=== PATIENT | male | born 1950 | race Caucasian/White ===

== ENCOUNTER 2017-06-26 17:50 | Emergency (ER) | payer BC ==
[2017-06-26 18:07] VITALS: BP 171/89
[2017-06-26] MEDS ORDERED: Ketorolac 30 MG/ML SDV IVPUSH ONE (19:06)
[2017-06-26] MEDS ORDERED: HYDROmorphone 1 MG/ML Syringe IVPUSH ONE (19:06)
[2017-06-26] MEDS ORDERED: Ondansetron 4 MG/2 ML SDV IVPUSH ONE (19:06)
[2017-06-26] MEDS ORDERED: Sodium Chloride 0.9% 10 ML Syringe FLUSH PRN (19:06)
--- NOTE | 2017-06-26 19:09 | EDM.PDOC ---
ED HPI GENERAL MEDICAL PROBLEM - General Chief Complaint: Flank Pain Stated Complaint: BACK PAIN Time Seen by Provider: 06/26/17 18:58 Source of Information: Reports: Patient History Limitations: Reports: No Limitations - History of Present Illness INITIAL COMMENTS - FREE TEXT/NARRATIVE: Patient is a 66-year-old male who presents to the ED complaining of left sided flank pain. States it started this morning with no provoking activities. Over the course of the day pain has worsened. Upon 1600 hrs it has grown quite severe and rated 8 out of 10. Described as a sharp pain increased with moving. He is unable to get comfortable. There is no pain with urination. He's had no previous symptoms as such. He has no history of kidney stones. No history of back issues or recent rash development. Denies any pain to his legs, incontinence, or numbness or tingling. He is unsure what is causing this pain. Unclear if this muscle related or not. Right Flank Pain Score (Numeric/FACES): 9 - Related Data Allergies Allergy/AdvReac Type Severity Reaction Status Date / Time No Known Allergies Allergy Verified 06/26/17 18:07 Home Meds: Home Meds Acetaminophen/HYDROcodone [Lacon 325-5 MG] 1 tab PO Q6H PRN #12 tablet 06/26/17 [Rx] Cyclobenzaprine [Flexeril] 10 mg PO TID PRN #10 tablet 06/26/17 [Rx] Enalapril [Vasotec] 10 mg PO DAILY 06/26/17 [History] Pure Turmeric Curcumin. 1 tab PO DAILY 06/26/17 [History] amLODIPine [Norvasc] 5 mg PO DAILY 06/26/17 [History] atorvaSTATin [Lipitor] 10 mg PO DAILY 06/26/17 [History] metFORMIN HCl [Metformin HCl ER] 750 mg PO DAILY 06/26/17 [History] Past Medical History Cardiovascular History: Reports: High Cholesterol, Hypertension Endocrine/Metabolic History: Reports: Diabetes, Type II - Past Surgical History Neurological Surgical History: Reports: C-Spine, Lumbar Spine Musculoskeletal Surgical History: Reports: Arthroscopic Knee Social & Family History - Tobacco Use Smoking Status *Q: Former Smoker Used Tobacco, but Quit: Yes Month Tobacco Last Used: 2001 - Caffeine Use Caffeine Use: Reports: None - Recreational Drug Use Recreational Drug Use: No ED ROS GENERAL - Review of Systems Review Of Systems: See Below Constitutional: Denies: Fever, Chills, Malaise, Weakness, Decreased Appetite Respiratory: Reports: No Symptoms Cardiovascular: Reports: No Symptoms GI/Abdominal: Denies: Abdominal Pain, Constipation, Diarrhea, Nausea, Vomiting : Reports: Flank Pain (Left-sided). Denies: Dysuria, Frequency, Hematuria, Urgency Musculoskeletal: Reports: Back Pain (Left lower back) Skin: Reports: No Symptoms Neurological: Reports: No Symptoms Psychiatric: Reports: No Symptoms ED EXAM,LOWER BACK PAIN/INJURY - Physical Exam Exam: See Below Exam Limited By: No Limitations General Appearance: Alert, WD/WN, No Apparent Distress, Mild Distress Ears: Hearing Grossly Normal Nose: Normal Inspection Throat/Mouth: Normal Voice, No Airway Compromise Neck: Normal Inspection, Supple, Full Range of Motion Respiratory/Chest: No Respiratory Distress, Lungs Clear, Normal Breath Sounds, No Accessory Muscle Use, Chest Non-Tender Cardiovascular: Normal Peripheral Pulses, Regular Rate, Rhythm, No Murmur GI/Abdominal: Normal Bowel Sounds, Soft, Non-Tender, No Organomegaly, No Distention, Other (No flank pain on palpation. Discomfort is nonreproducible with palpation) Back Exam: Normal Inspection, Decreased Range of Motion (Secondary to pain to the left lower back), Other (No tenderness noted on palpation. No rash present. Incision to spine from previous surgery. No verterbral pain noted. ). No: Muscle Spasm, Paraspinal Tenderness, Vertebral Tenderness Extremities: Normal Inspection, Normal Range of Motion, Non-Tender, No Pedal Edema, Normal Capillary Refill Neurological: Alert, Normal Mood/Affect, Normal Dorsiflexion, CN II-XII Intact, Normal Plantar Flexion, No Motor/Sensory Deficits, Oriented x 3 Psychiatric: Normal Affect, Normal Mood Skin Exam: Warm, Dry, Intact, Normal Color, No Rash Course - Vital Signs Last Recorded V/S: Last Vital Signs Temp 98.2 F 06/26/17 18:04 Pulse 78 06/26/17 22:02 Resp 16 06/26/17 22:02 BP 171/89 H 06/26/17 18:04 Pulse Ox 98 06/26/17 22:02 - Orders/Labs/Meds Labs: Laboratory Tests 06/26/17 06/26/17 06/26/17 Range/Units 18:13 19:35 19:35 WBC 6.17 (4.23-9.07) K/mm3 RBC 4.44 L (4.63-6.08) M/mm3 Hgb 14.0 (13.7-17.5) gm/L Hct 41.0 (40.1-51.0) % MCV 92.3 H (79.0-92.2) fl MCH 31.5 (25.7-32.2) pg MCHC 34.1 (32.2-35.5) g/dl RDW Std Deviation 41.7 (35.1-43.9) fL Plt Count 233 (163-337) K/mm3 MPV 9.7 (9.4-12.3) fl Neut % (Auto) 69.2 H (34.0-67.9) % Lymph % (Auto) 20.9 L (21.8-53.1) % [place] % (Auto) 8.8 (5.3-12.2) % Eos % (Auto) 0.6 L (0.8-7.0) Baso % (Auto) 0.3 (0.1-1.2) % Neut # (Auto) 4.27 (1.78-5.38) K/mm3 Lymph # (Auto) 1.29 L (1.32-3.57) K/mm3 [place] # (Auto) 0.54 (0.30-0.82) K/mm3 Eos # (Auto) 0.04 (0.04-0.54) K/mm3 Baso # (Auto) 0.02 (0.01-0.08) K/mm3 Sodium 141 (136-145) mEq/L Potassium 3.9 (3.5-5.1) mEq/L Chloride 104 (98-107) mEq/L Carbon Dioxide 26 (21-32) mEq/L Anion Gap 14.9 (5-15) BUN 13 (7-18) mg/dL Creatinine 1.1 (0.7-1.3) mg/dL Est Cr Clr Drug Dosing 67.84 mL/min Estimated GFR (MDRD) > 60 (>60) mL/min BUN/Creatinine Ratio 11.8 L (14-18) Glucose 134 H (80-115) mg/dL Calcium 8.8 (8.5-10.1) mg/dL Total Bilirubin 0.3 (0.2-1.0) mg/dL AST 31 (15-37) U/L ALT 46 (16-63) U/L Alkaline Phosphatase 57 (46-116) U/L C-Reactive Protein < 0.2 (<1.0) mg/dL Total Protein 7.1 (6.4-8.2) g/dl Albumin 4.3 (3.4-5.0) g/dl Globulin 2.8 gm/dL Albumin/Globulin Ratio 1.5 (1-2) Urine Color Yellow (Yellow) Urine Appearance Clear (Clear) Urine pH 7.0 (5.0-8.0) Ur Specific [place] 1.025 (1.005-1.030) Urine Protein Negative (Negative) Urine Glucose (UA) Negative (Negative) Urine Ketones Negative (Negative) Urine Occult Blood Negative (Negative) Urine Nitrite Negative (Negative) Urine Bilirubin Negative (Negative) Urine Urobilinogen 0.2 (0.2-1.0) Ur Leukocyte Esterase Negative (Negative) Urine RBC Not seen (0-5) /hpf Urine WBC 0-5 (0-5) /hpf Ur Epithelial Cells 0-5 (0-5) /hpf Amorphous Sediment Few H (NOT SEEN) /hpf Urine Bacteria Rare (FEW) /hpf Urine Mucus Not seen (FEW) /hpf Meds: Medications Discontinued Medications Generic Name Dose Route Start Last Admin Trade Name Freq PRN Reason Stop Dose Admin Hydromorphone HCl 1 mg 06/26/17 19:06 06/26/17 19:40 Dilaudid IVPUSH 06/26/17 19:07 1 mg ONETIME ONE Administration Sodium Chloride 1,000 mls @ 250 mls/hr 06/26/17 19:15 06/26/17 19:38 Normal Saline IV 250 mls/hr ASDIRECTED ZACK Administration Ketorolac Tromethamine 30 mg 06/26/17 19:06 06/26/17 19:39 Toradol IVPUSH 06/26/17 19:07 30 mg ONETIME ONE Administration Ondansetron HCl 4 mg 06/26/17 19:06 06/26/17 19:38 Zofran IVPUSH 06/26/17 19:07 4 mg ONETIME ONE Administration Sodium Chloride 10 ml 06/26/17 19:06 06/26/17 19:41 Saline Flush FLUSH 10 ml ASDIRECTED PRN Administration Keep Vein Open - Re-Assessments/Exams Free Text/Narrative Re-Assessment/Exam: Examination did not elicit obvious abnormalities. Ordered peripheral IV with normal saline 250 mls per hour, Dilaudid 1 mg IVP, Toradol 30 mg IVP, and Zofran 4 mg IVP. Initial labs and studies include CBC, chem 14, CRP, and UA. Believe patient may have a kidney stone due to the location of pain and also inability get comfortable. Pain was not reproducible with palpation. 06/26/17 21:00 Labs reviewed: White blood cell count 6.17, hemoglobin is 14.0, neutrophils percentage is 69.2, with no left shift, sodium 141, potassium 3.9, creatinine 1.1, glucose 134, CRP less than 0.2, UA did not reveal any concerning findings. CT the abdomen and pelvis impression: No renal calculi, ureteral dilatation or ureteral stone is seen. Other incidental findings as described above. No acute abnormality is identified on noncontrast CT study of the abdomen and pelvis. 06/26/17 21:15 Reassessment, patient laying in bed with his eyes closed. Upon asking about how the pain is doing he says terrible. States pain is a 7 out of 10 and has not improved with Dilaudid. Vital signs are stable. I told him I will not give any additional pain medications since he does not appear to be in any acute distress. I discussed results of CT and labs with the patient. Unclear etiology current complaint. Pain is not reproducible with palpation. There is no rash indicating shingles. He has no pain to the vertebral column. Will get nursing staff to get the patient up and walking to see how he does. Patient did state the pain he is currently experiencing is unlike previous back pain. 06/26/17 21:25 Nursing staff got the patient up and walking. He had pain localized to the right lower back. 06/26/17 21:37 On reevaluation again patient having localized pain to his left lower back with no worsening with palpation. Pain was worsened with lifting his legs up. Believe this is more muscle related. Thus will discharge patient with pain medications and muscle relaxer. Discharge instructions as documented. Departure - Departure Time of Disposition: 21:38 Disposition: Home, Self-Care 01 Condition: Good Clinical Impression: Low back pain Qualifiers: Chronicity: acute Back pain laterality: right Sciatica presence: without sciatica Qualified Code(s): M54.5 - Low back pain - Discharge Information Prescriptions: Acetaminophen/HYDROcodone [Lacon 325-5 MG] 1 tab PO Q6H PRN #12 tablet PRN Reason: Pain (Severe 7-10) Cyclobenzaprine [Flexeril] 10 mg PO TID PRN #10 tablet PRN Reason: Muscle Spasm Instructions: Pain Medicine Instructions, [id number], Flank Pain, Easy-to- Read Referrals: Balbina Astudillo [employer]PER[employer] SPECIALIST [Primary Care Provider] - Forms: ED Department Discharge Additional Instructions: As discussed CT of the abdomen and pelvis did not reveal any acute abnormalities. Labs were essentially normal. On examination he had no reproducible pain on palpation. Pain was only worsened with lifting of the leg. Thus pain is most likely related to a muscle strain. Take the muscle relaxer as prescribed. Take ibuprofen 600 mg every 6 hours and Tylenol 650 mg every 6 hours in alternating fashion for pain. For pain not managed with the above therapies take Lacon one tab every 6 hours as needed. Do not take Lacon and Tylenol at the same time. Do not drive this evening nor while taking the Lacon. Refrain from any activities that cause worsening pain. See her primary care provider as needed for further pain management and reevaluation. Return to the ED for any new or worsening symptoms. Thank you for your patience.
[2017-06-26] MEDS ORDERED: Sodium Chloride 0.9% 1,000 ML IV SCH (19:15)
--- NOTE | 2017-06-26 20:30 | CT ---
CT abdomen and pelvis Technique: Multiple axial sections were obtained from above the dome of the diaphragm inferiorly through the pubic symphysis. Intravenous and oral contrast not utilized. Study has been performed as a ureteral stone protocol. Comparison: No previous abdominal imaging. Findings: Visualized lung bases shows nothing acute. Kidneys show no abnormal calcifications. Ureters show no dilatation. No abnormal calcifications are seen along the course of the ureters. No bladder calculi are seen. Liver has an unremarkable noncontrast CT appearance. Spleen appears within normal limits. Adrenal glands show no nodule. No discrete abnormality is appreciated within the pancreas. Gallbladder shows no calcified gallstones. Aorta shows atherosclerotic calcification which continues into the iliac vessels. Appendix is seen which is normal. No pelvic mass or adenopathy is seen. No significant diverticulosis is seen. No inflammatory change or free fluid is seen. Minimal increased stool is noted within the colon. Prostate gland is slightly enlarged. Bone window settings were reviewed which shows scattered degenerative endplate spurring within the spine with degenerative apophyseal change seen within the mid and lower lumbar spine. Degenerative apophyseal change also seen within the visualized lower thoracic spine. Impression: 1. No renal calculi, ureteral dilatation or ureteral stone is seen. 2. Other incidental findings as described above. 3. No acute abnormality is identified on noncontrast CT study of the abdomen and pelvis. Diagnostic code #2
== END 2017-06-26 21:50 | disposition home or self-care (01) ==
LOC: JD.ED 17:50
DX: M54.5 Low back pain (principal); I10 Essential (primary) hypertension; E78.00 Pure hypercholesterolemia, unspecified; E11.9 Type 2 diabetes mellitus without complications; Z79.84 Long term (current) use of oral hypoglycemic drugs; Z79.899 Other long term (current) drug therapy; Z87.891 Personal history of nicotine dependence
CPT/HCPCS: 36415; 74176; 80053; 81001; 85025; 86140; 96361; 96374; 96375; 99284; J1170; J1885; J2405; J7040; J7050

== ENCOUNTER 2023-04-02 07:29 | Day surgery (SDC) | payer MEDICARE, BC ==
[~2023-04-02 07:29] MED LIST: Lactated Ringers 1,000 ML IV SCH; Lidocaine 1%/Sod Bicarbonate in NS 8.4% 1 ML Syringe IDERM PRN; Sodium Chloride 0.9% 10 ML Syringe FLUSH PRN; Sodium Chloride 0.9% 10 ML Syringe FLUSH SCH
[2023-04-02] MEDS ORDERED: Midazolam 1 MG/ML 2 ML SDV ONE (08:14)
[2023-04-02] MEDS ORDERED: Propofol 200 MG/20 ML SDV ONE (08:14)
[2023-04-02 09:08] VITALS: BP 118/74; PULSE 70
== END 2023-04-02 09:50 | disposition home or self-care (01) ==
LOC: JD.SDS 07:29
PROVIDERS: ATTEND Surgery
DX: K29.70 Gastritis, unspecified, without bleeding (principal); K44.9 Diaphragmatic hernia without obstruction or gangrene; K25.9 Gastric ulcer, unspecified as acute or chronic, without hemorrhage or perforation; I78.1 Nevus, non-neoplastic; K31.89 Other diseases of stomach and duodenum; I10 Essential (primary) hypertension; E78.00 Pure hypercholesterolemia, unspecified; N40.0 Benign prostatic hyperplasia without lower urinary tract symptoms; E11.42 Type 2 diabetes mellitus with diabetic polyneuropathy; M54.2 Cervicalgia; G89.29 Other chronic pain; M54.16 Radiculopathy, lumbar region; K21.9 Gastro-esophageal reflux disease without esophagitis; Z79.899 Other long term (current) drug therapy; Z79.84 Long term (current) use of oral hypoglycemic drugs; Z98.890 Other specified postprocedural states; Z87.891 Personal history of nicotine dependence
CPT/HCPCS: 43239; J2250; J2704; J7120

== ENCOUNTER 2023-08-08 08:28 | Day surgery (SDC) | payer MEDICARE, BC ==
[~2023-08-08 08:28] MED LIST changes: -Lidocaine 1%/Sod Bicarbonate in NS 8.4% 1 ML Syringe IDERM PRN
[2023-08-08] MEDS ORDERED: Bupivacaine 0.5%/EPINEPHrine 1:200,000 50 ML MDV ONE (09:18)
[2023-08-08] MEDS ORDERED: Lidocaine 1% 30 ML SDV ONE (09:18)
[2023-08-08] MEDS ORDERED: fentaNYL 100 MCG/2 ML SDV ONE (09:42)
[2023-08-08] MEDS ORDERED: Propofol 200 MG/20 ML SDV ONE (09:42)
[2023-08-08] MEDS ORDERED: Midazolam 1 MG/ML 2 ML SDV ONE (09:43)
[2023-08-08] MEDS ORDERED: Lidocaine 1% 5 ML VIAL ONE (09:43)
[2023-08-08] MEDS ORDERED: ceFAZolin 2 GM Vial ONE (09:58)
[2023-08-08] MEDS ORDERED: Ketorolac 15 MG/ML SDV ONE (10:40)
[2023-08-08 17:11] VITALS: BP 126/61; PULSE 78
== END 2023-08-08 10:52 | disposition home or self-care (01) ==
LOC: JD.SDS 08:28
PROVIDERS: ATTEND Surgery
DX: L72.0 Epidermal cyst (principal); L72.12 Trichodermal cyst; N40.0 Benign prostatic hyperplasia without lower urinary tract symptoms; K21.9 Gastro-esophageal reflux disease without esophagitis; E78.00 Pure hypercholesterolemia, unspecified; I10 Essential (primary) hypertension; E11.42 Type 2 diabetes mellitus with diabetic polyneuropathy; Z79.84 Long term (current) use of oral hypoglycemic drugs; Z79.899 Other long term (current) drug therapy; Z87.891 Personal history of nicotine dependence
CPT/HCPCS: 11422; J0690; J1885; J2250; J2704; J3010; J7120; 00300; 88304; J3490

== ENCOUNTER 2023-10-15 08:26 | Day surgery (SDC) | payer MEDICARE, BC ==
[2023-10-15] MEDS ORDERED: fentaNYL 100 MCG/2 ML SDV ONE (09:48)
[2023-10-15] MEDS ORDERED: Propofol 200 MG/20 ML SDV ONE (09:48)
[2023-10-15] MEDS ORDERED: Lidocaine 1% PF 2 ML SDV ONE (10:00)
[2023-10-15 11:23] VITALS: BP 121/83; PULSE 72
== END 2023-10-15 11:15 | disposition home or self-care (01) ==
LOC: JD.SDS 08:26
PROVIDERS: ATTEND Specialist
DX: K27.9 Peptic ulcer, site unspecified, unspecified as acute or chronic, without hemorrhage or perforation (principal); I10 Essential (primary) hypertension; E11.42 Type 2 diabetes mellitus with diabetic polyneuropathy; K21.9 Gastro-esophageal reflux disease without esophagitis; E78.00 Pure hypercholesterolemia, unspecified; N40.0 Benign prostatic hyperplasia without lower urinary tract symptoms; Z87.891 Personal history of nicotine dependence; Z79.84 Long term (current) use of oral hypoglycemic drugs; Z79.899 Other long term (current) drug therapy
CPT/HCPCS: 43239; 82947; J2704; J3010; J7120; J3490

== ENCOUNTER 2024-12-29 11:47 | Emergency (ER) | payer MEDICARE, BC ==
[2024-12-29 12:04] VITALS: BP 127/62; PULSE 70
[2024-12-29] MEDS: Ketorolac 30 MG/ML SDV IM ONE (12:36)
[2024-12-29] MEDS: LORazepam 1 MG Tab PO ONE (12:37)
== END 2024-12-29 15:00 | disposition home or self-care (01) ==
LOC: JD.ED 11:47
DX: M54.2 Cervicalgia (principal); I10 Essential (primary) hypertension; K21.9 Gastro-esophageal reflux disease without esophagitis; E78.00 Pure hypercholesterolemia, unspecified; E11.9 Type 2 diabetes mellitus without complications; Z79.84 Long term (current) use of oral hypoglycemic drugs; Z79.899 Other long term (current) drug therapy
CPT/HCPCS: 72125; 96372; 99283; A9270; J1885; 99284

== ENCOUNTER 2025-02-20 22:11 | Emergency (ER) | payer MEDICARE, BC ==
[2025-02-20] MEDS ORDERED: Sodium Chloride 0.9% 10 ML Syringe FLUSH PRN (22:31)
[2025-02-20 22:36] LABS: BASOPHILS ABSOLUTE AUTO 0.1 K/mm3 (0.0-0.2); BASOPHILS PERCENT AUTO 0.9 % (0.0-1.0); EOSINOPHILS PERCENT AUTO 0.5 % (0.0-6.0); HEMOGLOBIN 13.2 gm/dl (14.0-18.0); IMMATURE GRAN ABSOLUTE AUTO 0.01 K/mm3 (0.00-0.05); IMMATURE GRAN PERCENT AUTO 0.2 % (0.0-0.4); LYMPHOCYTES ABSOLUTE AUTO 2.1 K/mm3 (1.0-4.8); LYMPHOCYTES PERCENT AUTO 37.3 % (24.0-44.0); MEAN CORPUSCULAR HEMOGLOBIN 31.5 pg (28.0-32.0); MEAN CORPUSCULAR VOLUME 95.5 fl (83.0-99.0); MEAN PLATELET VOLUME 9.6 fl (9.4-12.4); MONOCYTES ABSOLUTE AUTO 0.4 K/mm3 (0.0-0.8); NEUTROPHILS ABSOLUTE AUTO 2.9 K/mm3 (1.8-7.7); NEUTROPHILS PERCENT AUTO 53.1 % (41.0-71.0); PLATELET COUNT,PLT 241 K/mm3 (150-400); RED BLOOD CELL COUNT 4.19 M/mm3 (4.52-5.90); WHITE BLOOD CELL COUNT,WBC 5.49 K/mm3 (3.9-11.3)
[2025-02-20] MEDS: Sodium Chloride 0.9% 1,000 ML IV ONE (22:39)
[2025-02-20 22:56] LABS: A/G RATIO 1.3 (1-2); ALBUMIN 3.7 g/dl (3.4-5.0); ANION GAP 16.4 (5-15); BILIRUBIN TOTAL 0.5 mg/dL (0.2-1.0); BUN/CREATININE RATIO 12.5 (14-18); CALCIUM 8.9 mg/dL (8.5-10.1); CREATININE 1.2 mg/dL (0.7-1.3); EST CRCL DRUG DOSING (CG) 53.83 mL/min; MAGNESIUM 1.7 mg/dL (1.8-2.4); POTASSIUM,K 3.4 mEq/L (3.5-5.1); PROTEIN TOTAL,TP 6.6 g/dl (6.4-8.2)
[2025-02-21 00:55] LABS: APPEARANCE,URINE CLEAR (Clear); BILIRUBIN,URINE NEGATIVE (Negative); COLOR,URINE YELLOW (Yellow); GLUCOSE,URINE NEGATIVE (Negative); KETONES,URINE TRACE (Negative); LEUKOCYTE ESTERASE,URINE NEGATIVE (Negative); NITRITE,URINE NEGATIVE (Negative); OCCULT BLOOD,URINE TRACE-INTACT (Negative); PH,URINE 6.5 (5.0-8.0); PROTEIN,URINE TRACE (Negative); UROBILINOGEN,URINE 0.2 (0.2-1.0)
[2025-02-21] MEDS: Sodium Chloride 0.9% 1,000 ML IV ONE (01:00)
[2025-02-21 01:10] LABS: CALCIUM OXALATE CRYSTALS,URINE RARE; EPITHELIAL CELLS,URINE NOT SEEN /hpf (0-5); RBC,URINE 0-5 /hpf (0-5); WBC,URINE 0-5 /hpf (0-5)
[2025-02-21 01:11] LABS: BACTERIA,URINE FEW /hpf (FEW); FINE GRANULAR CASTS,URINE 0-5 /lpf (0-5); HYALINE CASTS,URINE 20-30 /lpf (0-5); MUCUS,URINE FEW /hpf (FEW)
[2025-02-21 02:04] VITALS: BP 135/76; PULSE 69
== END 2025-02-21 02:37 | disposition home or self-care (01) ==
LOC: JD.ED 22:11
DX: R55 Syncope and collapse (principal); S09.90XA Unspecified injury of head, initial encounter; R19.7 Diarrhea, unspecified; I10 Essential (primary) hypertension; E78.00 Pure hypercholesterolemia, unspecified; K21.9 Gastro-esophageal reflux disease without esophagitis; E11.9 Type 2 diabetes mellitus without complications; Z79.84 Long term (current) use of oral hypoglycemic drugs; Z79.899 Other long term (current) drug therapy; W01.198A Fall on same level from slipping, tripping and stumbling with subsequent striking against other object, initial encounter
CPT/HCPCS: 36415; 70450; 71045; 72125; 80053; 80307; 81001; 83735; 83880; 84484; 85025; 93005; 96360; 96361; 99285; J7030; 93010; 99284

== ENCOUNTER 2025-08-18 07:34 | Emergency (ER) | payer MEDICARE, BC ==
[2025-08-18] MEDS: diphenhydrAMINE 50 MG/ML SDV IVPUSH ONE (08:18)
[2025-08-18] MEDS: Sodium Chloride 0.9% 10 ML Syringe FLUSH PRN (08:18)
[2025-08-18] MEDS: Ketorolac 30 MG/ML SDV IVPUSH ONE (08:18)
[2025-08-18 10:33] VITALS: BP 120/81; PULSE 61
== END 2025-08-18 10:30 | disposition home or self-care (01) ==
LOC: JD.ED 07:34
DX: R51.9 Headache, unspecified (principal); M54.2 Cervicalgia; I10 Essential (primary) hypertension; E78.00 Pure hypercholesterolemia, unspecified; E11.9 Type 2 diabetes mellitus without complications; Z79.84 Long term (current) use of oral hypoglycemic drugs; Z79.899 Other long term (current) drug therapy
CPT/HCPCS: 70450; 72125; 96374; 96375; 99284; A9270; J1200; J1885; J2765; J1171